=== PATIENT | female | born 1990 | race African-American/Black ===

== ENCOUNTER 2020-12-07 10:36 | Emergency (ER) | payer OTHER ==
[~2020-12-07] VITALS: Ht 172.7 cm; Wt 73.0 kg
[2020-12-07 11:15] LABS: HEMATOCRIT. 39.9 % (36.0-48.0); MEAN CORPUSCULAR HEMOGLOBIN 27.8 pg (28.0-32.0); MEAN CORPUSCULAR VOLUME 85.1 fL (81.0-99.0); MEAN PLATELET VOLUME 8.8 fl (7.4-10.4); PLATELET 217 x1000/uL (130-400); RED BLOOD CELL COUNT 4.68 mill/uL (4.2-5.4); RED CELL DISTRIBUTION WIDTH 16.3 % (11.6-14.6)
[2020-12-07 11:26] LABS: CHLORIDE 111 mEq/L (98-107)
[2020-12-07 11:30] LABS: ETHANOL BLOOD < 10 mg/dL
[2020-12-07 11:36] LABS: HCG SCREEN NEGATIVE
[2020-12-07 12:13] LABS: *AMPHETAMINES SCREEN URINE NEGATIVE (NEGATIVE); METHADONE URINE SCREEN NEGATIVE (NEGATIVE); OPIATES URINE SCREEN NEGATIVE (NEGATIVE); PHENCYCLIDINE URINE SCREEN NEGATIVE (NEGATIVE)
[2020-12-07 12:14] LABS: *BARBITURATES SCREEN URINE NEGATIVE (NEGATIVE); *BENZODIAZEPINES SCREEN URINE NEGATIVE (NEGATIVE); *COCAINE SCREEN URINE NEGATIVE (NEGATIVE); CANNABINOID URINE SCREEN NEGATIVE (NEGATIVE)
[2020-12-07] MEDS ORDERED: KETOROLAC 60MG/2ML VIAL IM ONE (12:30)
[2020-12-07] MEDS ORDERED: IBUP-2029 MT (12:31)
[2020-12-07 15:19] LABS: PLATELET ESTIMATE NORMAL
== END 2020-12-07 14:28 | disposition home or self-care (01) ==
LOC: ER 10:36
DX: S09.90XA Unspecified injury of head, initial encounter (principal); F17.200 Nicotine dependence, unspecified, uncomplicated; Z88.0 Allergy status to penicillin; Z98.890 Other specified postprocedural states; X58.XXXA Exposure to other specified factors, initial encounter; Y93.89 Activity, other specified; Y92.89 Other specified places as the place of occurrence of the external cause; Y99.8 Other external cause status
CPT/HCPCS: 36415; 70450; 80053; 80305; 80320; 81025; 84703; 85025; 96372; 99284; J1885; G0480